=== PATIENT | female | born 1995 | race Caucasian/White ===

== ENCOUNTER 2024-09-02 12:56 | Outpatient (CLI) | payer BC, SELFPAY ==
--- NOTE | 2024-09-02 13:00 | CRLHL7_ITS ---
For Patients: As a result of the Cures Act, medical imaging exams and procedure reports are released immediately into your electronic medical record. You may view this report before your referring provider. If you have questions, please contact your health care provider. INDICATION: First trimester scan, establish dates. COMPARISON: None. TECHNIQUE: Real-time nava-scale imaging of the pelvis was performed. FINDINGS: Sonographic imaging demonstrates a single living intrauterine gestation. The embryo demonstrates a regular cardiac rate measuring 178 beats per minute. The embryo`s crown-rump length measurement of 1.8 cm corresponds to a gestational age of 8 weeks 2 days with a sonographic due date of 04/12/2025. There is a normal-appearing yolk sac. There are no gross abnormalities noted within the embryo at this early state of development. The gestational sac has a normal appearance. There is a 5 x 13 x 9 millimeter perigestational hemorrhage inferior to the gestational sac. The amount of fluid within the sac appears appropriate for gestational age. The cervix is closed. The myometrium appears normal. Corpus luteal cyst right ovary. Normal left ovary. There are no suspicious fluid collections noted in the cul-de-sac. IMPRESSION: Single living intrauterine with sonographic gestational age 8 weeks 2 days and sonographic due date of 04/12/2025. Inferior subchorionic hemorrhage measures 5 x 13 x 9 millimeters. Dictated by Kaiser Anderson MD @ 09/02/2024 2:46:18 PM (Electronically Signed)
== END 2024-09-02 12:57 | disposition home or self-care (01) ==
LOC: US 12:57
PROVIDERS: Visit Provider Registered Nurse
DX: Z34.91 Encounter for supervision of normal pregnancy, unspecified, first trimester (principal); O20.9 Hemorrhage in early pregnancy, unspecified; Z3A.08 8 weeks gestation of pregnancy
CPT/HCPCS: 76817; 83021; 86592; 86703; 86704; 86706; 86762; 86787; 86803; 86850; 86900; 86901; 87086; 87340; 87491; 87591

== ENCOUNTER 2024-11-26 12:58 | Outpatient (CLI) | payer BC, SELFPAY ==
--- NOTE | 2024-11-26 13:00 | CRLHL7_ITS ---
For Patients: As a result of the Century Cures Act, medical imaging exams and procedure reports are released immediately into your electronic medical record. You may view this report before your referring provider. If you have questions, please contact your health care provider. OB ULTRASOUND SURVEY JOSIAS by US: 04/12/2025. GA: 20 w, 3 d. INDICATION: Supervision of normal . TECHNIQUE: Real time nava scale imaging of the fetus was performed. Evaluate anatomy. Transabdominal imaging performed. position: Vertex. Cervix: Visualized. Technique: Transabdominal. Length of closed cervix: 3.6 cm. Placenta/cord: Anterior. Technique: Transabdominal. Placenta tip to internal OS: 5.8 cm. Umbilical Cord: 3-vessel cord. Placenta insertion: Central. Amniotic Fluid: 4.3 cm SDP (greater than/equal to: 2- less than 8 cm). SURVEY: Observed Structures. Calvarium/Spine: Cerebellum: 2.1 cm, 21 w 3 d. Cisterna Magna: 3.4 mm. Nuchal Fold: 4.4 mm. Lateral Ventricle: 7.1 mm. CSP: Yes. Midline Falx: Yes. Choroid Plexus: Yes. Spine: Yes. Abdomen: Stomach: Yes. Abd Cord Insertion: Yes. Urinary Bladder: Yes. Kidneys: Yes. Diaphragm: Yes. Face: Nose/lips: see impression Orbital view: see impression Profile: see impression Limbs: Upper Extremities: Yes. Lower Extremities: Yes. Hands: Yes. Feet: Yes. Vascular: 4-Chamber Heart: Yes. LVOT: Yes. RVOT: Yes. 3VV: Yes. 3VTV: Yes. BPD: 5.1 cm. 21 w, 4 d, 87 percent. HC: 18.9 cm. 21 w, 2 d, 77 percent. AC: 16.2 cm. 21 w, 2 d, 72 percent. FL: 3.5 cm. 21 w, 1 d, 67 percent. FL/AC ratio: 21.85 percent. HC/AC ratio: 1.17. heart rate: 150 bpm. age by this US: 21 w, 4 d. JOSIAS by this US: 04/04/2025. EFW: 410.10 g. Weight: 14 oz. Percentile by JOSIAS: 87 percent. IMPRESSION: 1. Incomplete visualization of the nose, lips, orbit, and profile due to position. Remainder of the anatomic survey normal. Short-term follow-up recommended. 2. Residual collection of subchorionic blood noted adjacent to the placenta at the right superior aspect measures 9.4 x 0.9 x 1.9 cm. 3. Sonographic gestational age 21 weeks 4 days and sonographic due date 04/04/2025. Sonographic age is 8 days ahead of the clinical age. 4. Estimated weight 87th percentile. Abdominal circumference 72nd percentile. Kaiser Anderson M.D. [facility] [email or web address] DSM/jtori limon/Dictated by: Kaiser Anderson MD @ 11/27/2024 7:08:00 AM (Electronically Signed)
== END 2024-11-26 12:59 | disposition home or self-care (01) ==
LOC: US 13:00
PROVIDERS: Visit Provider Midwife
DX: Z34.92 Encounter for supervision of normal pregnancy, unspecified, second trimester (principal); O35.AXX0 Maternal care for other (suspected) fetal abnormality and damage, fetal facial anomalies, not applicable or unspecified; O20.9 Hemorrhage in early pregnancy, unspecified; O36.63X0 Maternal care for excessive fetal growth, third trimester, not applicable or unspecified; Z3A.20 20 weeks gestation of pregnancy
CPT/HCPCS: 76805

== ENCOUNTER 2024-12-09 10:01 | Outpatient (CLI) | payer BC, SELFPAY | END 2024-12-09 10:02 | disposition home or self-care (01) | LOC: US 10:01 | PROVIDERS: Visit Provider Midwife | DX: R93.89 Abnormal findings on diagnostic imaging of other specified body structures (principal); Z3A.22 22 weeks gestation of pregnancy | CPT/HCPCS: 76811 ==

== ENCOUNTER 2025-01-27 14:35 | Outpatient (CLI) | payer BC, SELFPAY | END 2025-01-27 14:36 | disposition home or self-care (01) | LOC: NFLDREF 02-01 08:06 | PROVIDERS: Visit Provider Midwife | DX: Z34.93 Encounter for supervision of normal pregnancy, unspecified, third trimester (principal) | CPT/HCPCS: 86592 ==

== ENCOUNTER 2025-03-17 15:05 | Outpatient (CLI) | payer BC, SELFPAY | END 2025-03-17 15:06 | disposition home or self-care (01) | LOC: NFLDREF 03-23 19:29 | PROVIDERS: Visit Provider Advanced Practice Midwife | DX: Z34.03 Encounter for supervision of normal first pregnancy, third trimester (principal) | CPT/HCPCS: 87081; 87653 ==

== ENCOUNTER 2025-04-09 00:46 | Inpatient (IN) | payer BC, SELFPAY ==
[2025-04-08 23:32] VITALS: BP 119/79; PULSE 87; RESP 12; TEMP 36.6
[2025-04-08 23:33] VITALS: PULSE 89; O2SAT 97
[2025-04-08 23:38] VITALS: PULSE 90; O2SAT 97
[2025-04-08 23:43] VITALS: PULSE 87; O2SAT 97
[2025-04-09] VITALS (24 sets, daily range): BP systolic 99–128; BP diastolic 55–76; PULSE 72–118; RESP 12–20; TEMP 36.5–36.8; O2SAT 96–98; BMI 41.9
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
[2025-04-09] MEDS: LIDOCAINE 1 % PF 30 ML INJECTION (03:43)
--- NOTE | 2025-04-09 05:02 | PM.OBCN1 ---
OB - CN: HPI Date of Consult Date Seen: 04/09/25 Consult date: 04/09/25 Requesting Physician: Ana Barbour CNM Primary Care Provider: Not a Local Provider Consult Narrative Narrative: The patient is a 29 year old at 39.4 weeks gestation that was admitted to the Center on 04/09/25 for spontaneous labor. Was consulted for laceration repair. Patient's pain control: nitrous oxide, 20 cc of lidocaine injected at laceration sites. 10 mg of Morphine IM given during the laceration repair for additional pain control. Bedside exam showed deep and long bilateral sulcal tears. Right sulcal tear repaired with 2-0 Vicryl in a continuous locking manner. One tadsgh-xb-rvwgo placed on the right side towards the hymenal ring for additional hemostasis. 3 Interrupted nkxkyr-yb-vgdydh using 2-0 Vicryl placed to close the space of the left sulcal tear. The superficial portion was prepared with 2-0 Vicryl in a continuous locking manner. Excellent hemostasis at the end of the procedure. The patient tolerated the procedure well considering she did not have neuroaxial anesthesia! I used 5 additional laps and 3 needles. Previous supplies were counted and confirmed by primary RN and delivering provider. Sponge, lap and needle counts were correct. Rest of care per delivery provider's note History History 1 Elective abortions Para 0 Spontaneous abortions Hx # Term Pregnancies Ectopic pregnancies Hx # Pregnancies Multiple births Number of Living Children 0 Labs Blood type: A (+) positive Rubella: immune RPR/VDLR: nonreactive GBS status: negative HBsAG: negative OB Labs: Lab Assessment Start: 04/09/25 00:09 Freq: ONCE Status: Complete Protocol: PC.OBGBS Activity Type Activity Date Activity User E-sign Co-sign Detail Recorded Client Recorded Date Recorded By Document 04/09/25 00:09 LLB No Response 04/09/25 00:52 LLB 04/09/25 00:09 Lab Assessment GBS Status negative GBS Additional Criteria None Is Patient Allergic to Penicillin? No Are Labs Available Yes Maternal Blood Type A Maternal RH Factor Positive Evaluate Maternal Rubella Immune Status Immune Hepatitis B Surface Antigen Negative Maternal HIV Status Negative Maternal Syphillis (RPR) Status Negative PFSH PFSH Medical History Migraine with aura ?G43.109 - Migraine with aura, not intractable, without status migrainosus (ICD-10) ADHD (attention deficit hyperactivity disorder) ?F90.9 - Attention-deficit hyperactivity disorder, unspecified type (ICD-10) Pelvic fracture ?S32.9XXA - Fracture of unspecified parts of lumbosacral spine and pelvis, initial encounter for closed fracture (ICD-10) Family History Father Diabetes Heart disease Paternal Grandmother Diabetes Mother Breast cancer, Onset Age: 54 Maternal Grandfather Lymphoma 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 What is your current living situation?: I presently have a place to live Problems where you live: no known problems In the past 12 months, utilities in danger of being shut off: no In past 12 months, lack of transportation kept you from medical appts, meetings, work, or getting things needed for daily living: no In the past 12 mos, have been you worried that your food would run out before you had money to buy more?: never true In the past 12 mos, the food you bought just didn't last and you didn't have money to buy more?: never true Smoking Status: Never smoker How often does anyone, including family, friends and others, physically hurt you: unable to answer How often does anyone, including family, friends and others, insult or talk down to you: unable to answer How often does anyone, including family, friends and others, threaten you with harm: unable to answer How often does anyone, including family, friends and others, scream or curse at you: unable to answer Meds Home Medications and Allergies Home Medications ?Medication ?Instructions ?Recorded ?Confirmed ?Type docosahexaenoic acid 200 mg mg PO 09/02/24 04/07/25 History capsule ( DHA) aspirin 81 mg chewable tablet 81 mg PO QDAY 10/28/24 04/08/25 History loratadine 10 mg tablet (Claritin) 10 mg PO QDAY 10/28/24 04/08/25 History Allergies Allergy/AdvReac Type Severity Reaction Status Date / Time No Known Drug Allergies Allergy Verified 04/07/25 14:39 OB - H&P: Exam Physical Exam: Vital signs: Temp Pulse Resp BP Pulse Ox 98.3 F 111 H 12 128/61 97 04/09/25 03:00 04/09/25 04:55 04/08/25 23:32 04/09/25 04:55 04/08/25 23:43 OB - CN: A/P Assessment and Plan (1) : Status: Acute (2) Pain during labor: Status: Acute (3) Obesity affecting : Status: Acute (4) Excess weight gain in : Status: Acute
--- NOTE | 2025-04-09 05:10 | W.PM.OBVAGDE ---
OB Procedure Vag Delivery Mother Details Mother Details: The patient is a 29 year-old, 1, Para 0, admitted on 04/09/25 at 39 4/7 weeks gestation. Admission Date: 04/09/25 Additional Details Amniotic Membrane Status: SROM Amniotic Membrane Rupture Date: 04/09/25 Amniotic Membrane Rupture Time: 02:37 Amniotic Membrane Fluid Description: Clear Analgesia/Anesthesia Type: Local (and nitrous and IM morphine for repair, nitrous oxide in labor) Waterbirth: Yes Pitcoin: Yes ([facility] only) Intrapartal Events: None Labor Onset: 00:01 Complete: 02:33 (assumed with spontaneous pushing) Pushin:33 Heart: FHTs in the 2nd stage were checked intermittently and category I. Delivery Details Delivery Date: 04/09/25 Delivery Time: 03:26 Route of delivery: Gender: Male Infant Viability: Alive; Heart Rate Present Position at Delivery: OA Delivery Details: Patient was admitted for?active labor?and progressed quickly. SROM noted at?0237?with clear fluid. Patient was assumed complete with spontaneous?pushing?at?0233. of?a viable?male at?0326?in sitting position in the tub. Vertex?delivered?OA. No nuchal cord or shoulder dystocia.?Body?delivered easily and without incident assisted into his father's hands who passed him to his mother.?To?mothers?chest with a vigorous cry. Cord was clamped and cut at > 5 minutes. APGARS were?9?at one minute and?9?at five?minutes?respectively. Intact placenta with a?3 vessel?cord delivered spontaneously at?0337. Fundus firm. Bilateral sulcus lacerations into a 2nd degree perineal laceration?identified. Left inferior aspect repaired for hemostasis while Dr Navarro was heading in to assist with repair. Friability of the vagina also noted. Please see her note for the complete repair details. QBL?584?cc. Mother and baby stable; mother plans to breastfeed. Infant weight pending.? Radha did perfectly and went quickly like her mother and grandmother. 1 Minute Interval Total Score: 9 5 Minute Interval Total Score: 9 Additional Details Shoulder Dystocia: No Placenta Delivery Time: 03:37 Placental Delivery Description: Spontaneous Delivery repair: Vicryl and Chromic Procedure Done: Global Blood Loss: 584 Laceration: Perineal - 2nd Degree (with bilateral Sulcus lacerations) Blood Loss Measurement Type: QBL Bakri Used: No Sponge/Need Count Correct: Yes Cord Vessel Description: 3 Vessels Event Summary Status: Mother and were stable after delivery. Disposition: floor
[2025-04-09] MEDS: IBUPROFEN 600 MG TABLET PO (17:06)
[2025-04-10 00:13] VITALS: BP 130/74; PULSE 91; RESP 16; TEMP 36.8; O2SAT 97
[2025-04-10] MEDS: IBUPROFEN 600 MG TABLET PO ×3 (00:23→16:21)
[2025-04-10 06:19] LABS: Hemoglobin* 9.6 gm/dL (12.0-16.0)
--- NOTE | 2025-04-10 09:01 | PM.OBPNVD1 ---
OB - PN:Subj Subjective Date Seen: 04/10/25 Narrative: Radha is a 29 y.o. who was admitted to L & D for labor.? She had an uncomplicated NVD.? ?? The patient feels well.? The pain is well controlled with current medications.? She has no new complaints.? She is breast feeding and reports things are going well, she is using a nipple shield.? the patient has done well.? Vitals have been stable.? She has remained afebrile.? Has a good appetite, is tolerating a general diet.? She is voiding without difficulty.? She is passing gas and has not had a bowel movement.? She is ambulating and denies any dizziness.? Has Small amount of rubra lochia.? OB - PN: Obj Exam Physical Exam: Vital signs: Temp Pulse Resp BP Pulse Ox O2 Del Method 98.2 F 91 16 130/74 97 Room Air 04/10/25 00:13 04/10/25 00:13 04/10/25 00:13 04/10/25 00:13 04/10/25 00:13 04/10/25 00:13 Narrative: GENERAL APPEARANCE:? normal affect, alert, no distress? MOOD:? appropriate? HEENT: normocephalic, neck supple, full ROM? CHEST:? Symmetrical chest wall movement.? Normal respiratory effort.? Clear to auscultation ? HEART:? regular rate and rhythm? ABDOMEN:? soft, non-tender. Uterine fundus is firm, at Umbilicus, Midline and is appropriate for the stage of recovery.? Bowel sounds present.? PERINEUM:? mild edema of the perineum, there is a 2nd degree laceration that is healing well.? EXTREMITIES:? normal and 1+ edema? OB - PN: Obj Data Labs Labs: Laboratory Results - last 24 hr 04/10/25 06:07 Hgb 9.6 L OB - PN: A/P Delivery Assessment and Plan (1) care and examination of lactating mother: Status: Acute (2) Obesity affecting : Status: Acute (3) Excess weight gain in : Status: Acute Plan day: 1 Plan: routine care Comments: G 1 P 1 status post uncomplicated NVD??? 1.? Continue route PP cares? 2.? .? May see if desired? 3.? Anticipate discharge home tomorrow? 4. ?Acute anemia.? Iron supplement ordered.
[2025-04-10 09:43] VITALS: BP 119/77; PULSE 98; RESP 16; O2SAT 96
[2025-04-10] MEDS: FERROUS SULFATE 325 MG TABLET PO (09:52)
[2025-04-10] MEDS: DOCUSATE SODIUM 100 MG CAPSULE PO (09:52)
[2025-04-10 16:05] VITALS: BP 107/71; PULSE 96; RESP 14; TEMP 36.7; O2SAT 97
[2025-04-10] MEDS: LANOLIN CREAM 1 APPLIC TOPICAL (16:21)
[2025-04-11 00:23] VITALS: BP 110/72; PULSE 100; RESP 14; TEMP 36.8; O2SAT 97
[2025-04-11] MEDS: IBUPROFEN 600 MG TABLET PO ×2 (00:27→09:41)
[2025-04-11 08:45] VITALS: BP 117/76; PULSE 77; RESP 16; O2SAT 97
[2025-04-11] MEDS: DOCUSATE SODIUM 100 MG CAPSULE PO (09:42)
--- NOTE | 2025-04-11 09:42 | PM.OBDSVD1 ---
DS: Providers Provider Date Seen: 04/11/25 Date of admission: 04/09/25 00:46 Primary care physician: Not a Local Provider Admitting Clinician: Ana Barbour CNM Attending Physician on discharge: Konrad Fulton CNM Date of Discharge: 04/11/25 DS: Diagnosis Discharge Diagnosis (1) care and examination of lactating mother: Status: Acute Exam Narrative: Exam Narrative: VSS, afebrile GENERAL APPEARANCE: ?normal affect, alert, no distress MOOD: ?appropriate HEENT: normocephalic, neck supple, full ROM CHEST: ?Symmetrical chest wall movement. ?Normal respiratory effort. ?Clear to auscultation HEART: ?regular rate and rhythm ABDOMEN: ?soft, non-tender. Uterine fundus is firm, at Umbilicus, Midline and is appropriate for the stage of recovery. ?Bowel sounds present. PERINEUM: ?mild edema of the perineum, there is a 2nd degree laceration that is healing well. EXTREMITIES: ?normal and 1+ edema Const: Vital Signs, click to edit/add: Vital Signs - 24 hr 04/10/25 09:43 04/10/25 16:05 04/11/25 00:23 Temperature 98.1 F 98.3 F Pulse Rate [Pulse Oximeter] 98 96 100 Respiratory Rate 16 14 14 Blood Pressure [Ri ght Arm] 119/77 107/71 110/72 Pulse Oximetry 96 97 97 Oxygen Delivery Me thod Room Air Room Air Room Air 04/11/25 08:45 Temperature Pulse Rate [Pulse Oximeter] 77 Respiratory Rate 16 Blood Pressure [Ri ght Arm] 117/76 Pulse Oximetry 97 Oxygen Delivery Me thod Room Air Documenting provider has reviewed patient's vital signs: yes OB - DS: Summary Hospital Course Hospital Course: Radha is a 29 y.o. who was admitted to L & D for spontaneous labor. ?She had an uncomplicated NVD.?The patient feels well. ?The pain is well controlled with current medications. ?She has no new complaints. ?She is breast feeding and reports things are going ok, she has started supplementing due to an 8% weight loss for baby.? the patient has done well.? Vitals have been stable.? She has remained afebrile.? Has a good appetite, is tolerating a general diet. ?She is voiding without difficulty.? She is passing gas and has not had a bowel movement.? She is ambulating and denies any dizziness.? Has Small amount of rubra lochia. ?She is planning Mirena IUD for prevention. Peripartum Data Infant delivery method: Vaginal Laceration description: Perineal - 2nd Degree (sulcal tears) complications: none Infant Gender: Male Discharge Plan: Home Status at Discharge Functional status at discharge: independent ambulation Overall status at discharge: patient is progressing back to baseline Time Spent with Patient Time attestation: Total time spent providing and/or coordinating discharge services: Time spent: Less than 30 minutes Discharge Plan Discharge Disposition: Home, Self-Care Date of Admission: 04/09/25 00:46 Attending Provider on Discharge: Konrad Fulton Primary Care Provider: Provider,Not a Local Condition: Stable Anticipated Discharge Date/Time: 04/11/25 12:00 Discharge Medications: New acetaminophen 500 mg Tablet 1,000 mg PO Q6H PRNQty: 0 0RF docusate sodium 100 mg Capsule 100 mg PO DAILY Qty: 90 0RF ferrous sulfate 325 mg (65 mg iron) Tablet 325 mg PO Q48H Qty: 30 0RF ibuprofen 600 mg Tablet 600 mg PO Q6H PRNQty: 60 0RF Continued DHA 200 mg capsule PO loratadine [Claritin] 10 mg tablet 10 mg PO QDAY Discontinued aspirin 81 mg tablet,chewable 81 mg PO QDAY Discharge Orders: Discharge Order (Routine); Ordered 04/11/25 Ordered By: Konrad Fulton Patient Education: OB Over the Counter Medication Information, OB Vaginal/Breast Feeding Additional Instructions: Discharge instructions were reviewed with the patient including signs and symptoms of infection and home going medications Nothing vaginally for 6 weeks: no tampons or intercourse Off Work or School for 6 weeks 2-week visit: discuss feeding concerns, review control options and screen for anxiety/depression. 6-week visit for an annual exam. consultation services are available to all mothers and babies for the first year after delivery.? To make an appointment, please call [phone]. Activity Level: Activity as Tolerated Discharge Diet: Regular Follow Up Appointments: [facility] [Provider Group] Forms: [employer] Info Instructions
== END 2025-04-11 14:48 | disposition home or self-care (01) | DRG 560 ==
LOC: OB OUT 00:47 → OB 00:47
PROVIDERS: Admitting Provider Midwife; Visit Provider Midwife
DX: O99.214 Obesity complicating childbirth (principal); O70.1 Second degree perineal laceration during delivery; E66.9 Obesity, unspecified; Z3A.39 39 weeks gestation of pregnancy; Z37.0 Single live birth
CPT/HCPCS: 36415; 76815; 85018; 86780; G0463; A9270; J2003; J2270; J2590